=== PATIENT | female | born 1980 | race Caucasian/White ===

== ENCOUNTER 2017-10-17 15:28 | Emergency (ER) | payer BC, MEDICAID ==
[2017-10-17] MEDS ORDERED: Tamsulosin 0.4 MG Cap.ER PO ONE (15:40)
[2017-10-17] MEDS ORDERED: Ketorolac 30 MG/ML SDV IVPUSH ONE (15:40)
--- NOTE | 2017-10-17 15:43 | EDM.PDOC ---
ED HPI GENERAL MEDICAL PROBLEM - General Stated Complaint: LEFT SIDE PAIN Time Seen by Provider: 10/17/17 15:28 Source of Information: Reports: Patient, Family History Limitations: Reports: No Limitations - History of Present Illness INITIAL COMMENTS - FREE TEXT/NARRATIVE: 37 y.o.w.cyndi came with her SO to the ed deu to acute onset of left flank pain, going to her left groin. No trauma, no h/o kidney stones in the past. She underwent tubal ligation in the past. No other acute medical issues at this time. BP 135/86 RR 16 Pulse ox 100% temp 36.4 Onset: Today Onset Date: 10/17/17 Onset Time: 09:00 Duration: Hour(s):, Intermittent Location: Reports: Abdomen, Other (left flank) Quality: Reports: Ache, Throbbing Severity: Severe Improves with: Reports: Rest Worsens with: Reports: Movement Context: Reports: Other (sudden onset of left flank pain) Associated Symptoms: Reports: No Other Symptoms Flank Pain Score (Numeric/FACES): 10 - Related Data Allergies Allergy/AdvReac Type Severity Reaction Status Date / Time No Known Allergies Allergy Verified 10/17/17 17:24 Home Meds: Home Meds Ciprofloxacin HCl [Cipro] 500 mg PO BID #20 tablet 10/17/17 [Rx] Ibuprofen [Motrin] 600 mg PO Q6H PRN #30 tab 10/17/17 [Rx] Tamsulosin HCl [Flomax] 0.4 mg PO DAILY #4 cap.er.24h 10/17/17 [Rx] oxyCODONE HCl/Acetaminophen [Percocet 5-325 mg Tablet] 1 each PO Q6HR PRN #12 tablet 10/17/17 [Rx] Past Medical History - Past Health History Medical/Surgical History: Denies Medical/Surgical History Social & Family History - Tobacco Use Smoking Status *Q: Current Every Day Smoker Years of Tobacco use: 1 - Alcohol Use Days Per Week of Alcohol Use: 0 - Recreational Drug Use Recreational Drug Use: No ED ROS GENERAL - Review of Systems Review Of Systems: Unable To Obtain (due to pain) ED EXAM, RENAL/ - Physical Exam Exam: See Below Exam Limited By: No Limitations General Appearance: Alert, WD/WN, Moderate Distress Eye Exam: Bilateral Eye: Normal Inspection Ears: Normal External Exam Nose: Normal Inspection, Normal Mucosa Throat/Mouth: Normal Inspection Head: Atraumatic, Normocephalic Neck: Normal Inspection, Supple, Non-Tender, Full Range of Motion Respiratory/Chest: No Respiratory Distress, Lungs Clear Cardiovascular: Normal Peripheral Pulses, Regular Rate, Rhythm, No Edema, No Gallop, No Rub GI/Abdominal: Other (left flank pain) (Female) Exam: Deferred Rectal (Female) Exam: Deferred Back Exam: Normal Inspection Extremities: Normal Inspection, Normal Range of Motion Neurological: Alert, Oriented, CN II-XII Intact, Normal Cognition, Normal Gait, No Motor/Sensory Deficits Psychiatric: Normal Affect, Normal Mood Skin Exam: Warm, Dry, Intact, Normal Color, No Rash Lymphatic: No Adenopathy Course - Vital Signs Text/Narrative:: 37 y.o.w.f came with her SO to the ed deu to acute onset of left flank pain, going to her left groin. No trauma, no h/o kidney stones in the past. She underwent tubal ligation in the past, denies Dysuria. No other acute medical issues at this time. BP 135/86 RR 16 Pulse ox 100% temp 36.4 PE: WNWD W F with left flank pain Imagin.2 and 7 mm stone in mmid left ureter with mild hydro Labs: UTI with hematuria Impression: Urolothiasis, UTI with hematuria Tx: Toradol, Flomax, cipro Reexam: pain subsided Plan: D/C with instructions Last Recorded V/S: Last Vital Signs Temp 36.9 C 10/17/17 18:01 Pulse 70 10/17/17 18:01 Resp 16 10/17/17 18:01 BP 128/70 10/17/17 18:01 Pulse Ox 98 10/17/17 18:01 - Orders/Labs/Meds Orders: Active Orders 24 hr Category Date Time Status Abdomen Pelvis wo Cont [CT] Stat Exams 10/17/17 15:41 Taken CULTURE URINE [RM] Stat Lab 10/17/17 17:10 Received Labs: Laboratory Tests 10/17/17 10/17/17 10/17/17 Range/Units 15:50 15:50 17:10 WBC 10.0 (4.5-12.0) X10-3/uL RBC 4.34 (3.23-5.20) x10(6)uL Hgb 13.3 (11.5-15.5) g/dL Hct 39.1 (30.0-51.3) % MCV 90.1 (80-96) fL MCH 30.7 (27.7-33.6) pg MCHC 34.1 (32.2-35.4) g/dL RDW 12.0 (11.5-15.5) % Plt Count 426 H (125-369) X10(3)uL MPV 8.2 (7.4-10.4) fL Neut % (Auto) 64.2 (46-82) % Lymph % (Auto) 24.1 (13-37) % Clark % (Auto) 5.8 (4-12) % Eos % (Auto) 5 (1.0-5.0) % Baso % (Auto) 1 (0-2) % Neut # (Auto) 6.4 (1.6-8.3) # Lymph # (Auto) 2.4 (0.6-5.0) # Clark # (Auto) 0.6 (0.0-1.3) # Eos # (Auto) 0.5 (0.0-0.8) # Baso # (Auto) 0.1 (0.0-0.2) # Sodium 139 (135-145) mmol/L Potassium 3.8 (3.5-5.3) mmol/L Chloride 105 (100-110) mmol/L Carbon Dioxide 26 (21-32) mmol/L BUN 12 (7-18) mg/dL Creatinine 0.8 (0.55-1.02) mg/dL Est Cr Clr Drug Dosing TNP Estimated GFR (MDRD) > 60 (>60) BUN/Creatinine Ratio 15.0 (9-20) Glucose 110 (80-116) mg/dL Calcium 9.0 (8.6-10.2) mg/dL Urine Color (YELLOW) Urine Appearance (CLEAR) Urine pH (5.0-6.5) Ur Specific [place] (1.010-1.025) Urine Protein (NEGATIVE) mg/dL Urine Glucose (UA) (NEGATIVE) mg/dL Urine Ketones (NEGATIVE) mg/dL Urine Occult Blood (NEGATIVE) Urine Nitrite (NEGATIVE) Urine Bilirubin (NEGATIVE) Urine Urobilinogen (NEGATIVE) mg/dL Ur Leukocyte Esterase (NEGATIVE) Urine RBC (0) Urine WBC (0) Ur Squamous Epith Cells (NS,R,O) Urine Bacteria (NS) Urine Mucus (NS) Urine HCG, Qual Negative (NEGATIVE) 10/17/17 Range/Units 17:10 WBC (4.5-12.0) X10-3/uL RBC (3.23-5.20) x10(6)uL Hgb (11.5-15.5) g/dL Hct (30.0-51.3) % MCV (80-96) fL MCH (27.7-33.6) pg MCHC (32.2-35.4) g/dL RDW (11.5-15.5) % Plt Count (125-369) X10(3)uL MPV (7.4-10.4) fL Neut % (Auto) (46-82) % Lymph % (Auto) (13-37) % Clark % (Auto) (4-12) % Eos % (Auto) (1.0-5.0) % Baso % (Auto) (0-2) % Neut # (Auto) (1.6-8.3) # Lymph # (Auto) (0.6-5.0) # Clark # (Auto) (0.0-1.3) # Eos # (Auto) (0.0-0.8) # Baso # (Auto) (0.0-0.2) # Sodium (135-145) mmol/L Potassium (3.5-5.3) mmol/L Chloride (100-110) mmol/L Carbon Dioxide (21-32) mmol/L BUN (7-18) mg/dL Creatinine (0.55-1.02) mg/dL Est Cr Clr Drug Dosing Estimated GFR (MDRD) (>60) BUN/Creatinine Ratio (9-20) Glucose (80-116) mg/dL Calcium (8.6-10.2) mg/dL Urine Color Yellow (YELLOW) Urine Appearance Cloudy (CLEAR) Urine pH 5.0 (5.0-6.5) Ur Specific [place] 1.030 H (1.010-1.025) Urine Protein 30 H (NEGATIVE) mg/dL Urine Glucose (UA) Normal (NEGATIVE) mg/dL Urine Ketones Negative (NEGATIVE) mg/dL Urine Occult Blood Large H (NEGATIVE) Urine Nitrite Positive H (NEGATIVE) Urine Bilirubin Negative (NEGATIVE) Urine Urobilinogen Normal (NEGATIVE) mg/dL Ur Leukocyte Esterase Large H (NEGATIVE) Urine RBC >100 H (0) Urine WBC >100 H (0) Ur Squamous Epith Cells Few H (NS,R,O) Urine Bacteria Many H (NS) Urine Mucus Moderate H (NS) Urine HCG, Qual (NEGATIVE) Meds: Medications Discontinued Medications Generic Name Dose Route Start Last Admin Trade Name Nestorq PRN Reason Stop Dose Admin Ciprofloxacin 500 mg 10/17/17 17:45 10/17/17 17:54 Ciprofloxacin Hcl PO 10/17/17 17:46 500 mg ONETIME ONE Administration Sodium Chloride 1,000 mls @ 999 mls/hr 10/17/17 15:50 10/17/17 16:03 Normal Saline IV 999 mls/hr ASDIRECTED JB Administration Sodium Chloride 1,000 mls @ 999 mls/hr 10/17/17 17:15 10/17/17 17:15 Normal Saline IV 999 mls/hr ASDIRECTED JB Administration Ketorolac Tromethamine 30 mg 10/17/17 15:40 10/17/17 16:05 Toradol IVPUSH 10/17/17 15:41 30 mg ONETIME ONE Administration Tamsulosin HCl 0.4 mg 10/17/17 15:40 10/17/17 16:05 Flomax PO 10/17/17 15:41 0.4 mg ONETIME ONE Administration Departure - Departure Time of Disposition: 17:47 Disposition: Home, Self-Care 01 Condition: Good Clinical Impression: UTI (urinary tract infection) Urolithiasis Qualifiers: Urinary calculus location: ureter Qualified Code(s): N20.1 - Calculus of ureter - Discharge Information Prescriptions: oxyCODONE HCl/Acetaminophen [Percocet 5-325 mg Tablet] 1 each PO Q6HR PRN #12 tablet PRN Reason: for severe pain only Ciprofloxacin HCl [Cipro] 500 mg PO BID #20 tablet Ibuprofen [Motrin] 600 mg PO Q6H PRN #30 tab PRN Reason: moderate pain Tamsulosin HCl [Flomax] 0.4 mg PO DAILY #4 cap.er.24h Instructions: Renal Colic, [id number] Referrals: PCP,None [Primary Care Provider] - Forms: ED Department Discharge Additional Instructions: Please take the Meds as recommended, please increase water intake, please f/u with urology/PMD, please came back if your symptoms get worse acutely - My Orders Last 24 Hours: My Active Orders 10/17/17 15:41 Abdomen Pelvis wo Cont [CT] Stat 10/17/17 17:10 CULTURE URINE [RM] Stat - Assessment/Plan Last 24 Hours: My Active Orders 10/17/17 15:41 Abdomen Pelvis wo Cont [CT] Stat 10/17/17 17:10 CULTURE URINE [RM] Stat
[2017-10-17] MEDS ORDERED: Sodium Chloride 0.9% 1,000 ML IV SCH ×2 (15:50→17:15)
[2017-10-17] MEDS ORDERED: Ciprofloxacin 500 MG Tab PO ONE (17:45)
== END 2017-10-17 18:00 | disposition home or self-care (01) ==
LOC: FB.ED 15:28
DX: N20.2 Calculus of kidney with calculus of ureter (principal); N39.0 Urinary tract infection, site not specified; F17.200 Nicotine dependence, unspecified, uncomplicated
CPT/HCPCS: 36415; 74176; 80048; 81001; 81025; 85025; 87086; 87088; 87186; 96361; 96374; 99284; A9270; J1885; J7040; J7030

== ENCOUNTER 2017-10-31 16:29 | Emergency (ER) | payer BC ==
[2017-10-31] MEDS ORDERED: Tamsulosin 0.4 MG Cap.ER PO ONE (16:52)
[2017-10-31] MEDS ORDERED: Ketorolac 30 MG/ML SDV IVPUSH ONE (16:52)
--- NOTE | 2017-10-31 16:58 | EDM.PDOC ---
ED HPI GENERAL MEDICAL PROBLEM - General Chief Complaint: Genitourinary Problem Stated Complaint: L SIDE PAIN Time Seen by Provider: 10/31/17 16:35 Source of Information: Reports: Patient History Limitations: Reports: Other (flank pain, crying) - History of Present Illness INITIAL COMMENTS - FREE TEXT/NARRATIVE: 37 y.o.w.f with a h/o Kidneystones, S/P stent placement left ureter, came to the ED because of severe left flank pain and bloody urine after she removed the stent by herself [employer]TER [employer]. Pt was in excruciating pain at her left flank with nausea. Pt is on oxycodon, which did not help her pain BP 123/67 pulse 102 Temp 36.8 RR 17 Pulse ox 100% on RA Onset: Today Onset Date: 10/30/17 Onset Time: 13:00 Duration: Hour(s):, Intermittent Location: Reports: Back Quality: Reports: Ache, Burning, Dull, Pressure, Same as Previous Episode Severity: Moderate Improves with: Reports: Medication Worsens with: Reports: Movement Context: Reports: Other (H/O kidney stones) left side/flank Pain Score (Numeric/FACES): 10 - Related Data Allergies Allergy/AdvReac Type Severity Reaction Status Date / Time No Known Allergies Allergy Verified 10/31/17 16:38 Home Meds: Home Meds Ciprofloxacin HCl [Cipro] 500 mg PO BID #20 tablet 10/17/17 [Rx] Ibuprofen [Motrin] 600 mg PO Q6H PRN #30 tab 10/17/17 [Rx] Tamsulosin HCl [Flomax] 0.4 mg PO DAILY #4 cap.er.24h 10/17/17 [Rx] oxyCODONE HCl/Acetaminophen [Percocet 5-325 mg Tablet] 1 each PO Q6HR PRN #12 tablet 10/17/17 [Rx] Past Medical History - Past Health History Medical/Surgical History: Denies Medical/Surgical History Genitourinary History: Reports: Other (See Below) Other Genitourinary History: kidney stones - Past Surgical History Other Female Surgeries/Procedures: states that she had stents in her kidneys that she removed yesterday. states that she was inturcted to remove it herself. Social & Family History - Family History Family Medical History: Noncontributory - Tobacco Use Smoking Status *Q: Current Every Day Smoker Years of Tobacco use: 20 Packs/Tins Daily: 0.5 Used Tobacco, but Quit: No Second Hand Smoke Exposure: Yes - Caffeine Use Caffeine Use: Reports: Coffee, Soda - Alcohol Use Days Per Week of Alcohol Use: 0 - Recreational Drug Use Recreational Drug Use: No ED ROS GENERAL - Review of Systems Review Of Systems: See Below Constitutional: Reports: No Symptoms HEENT: Reports: No Symptoms Respiratory: Reports: No Symptoms Cardiovascular: Reports: No Symptoms Endocrine: Reports: No Symptoms GI/Abdominal: Reports: Abdominal Pain (left flank pain) : Reports: No Symptoms Musculoskeletal: Reports: No Symptoms Skin: Reports: No Symptoms Neurological: Reports: No Symptoms Psychiatric: Reports: No Symptoms Hematologic/Lymphatic: Reports: No Symptoms Immunologic: Reports: No Symptoms ED EXAM, RENAL/ - Physical Exam Exam: See Below Exam Limited By: Other (flankpain, crying) General Appearance: Alert, WD/WN, Moderate Distress (left flank pain) Eye Exam: Bilateral Eye: Normal Inspection Ears: Normal External Exam Nose: Normal Inspection Throat/Mouth: Normal Inspection Head: Atraumatic, Normocephalic Neck: Normal Inspection, Supple Respiratory/Chest: No Respiratory Distress, Lungs Clear Cardiovascular: Normal Peripheral Pulses, Regular Rate, Rhythm GI/Abdominal: Tender (left back/flank) (Female) Exam: Deferred Rectal (Female) Exam: Deferred Back Exam: Normal Inspection, CVA Tenderness (L) Extremities: Normal Inspection, Normal Range of Motion, Non-Tender, No Pedal Edema Neurological: Alert, Oriented, CN II-XII Intact, Normal Cognition, Normal Gait Psychiatric: Normal Affect, Depressed Mood, Tearful (crying) Skin Exam: Warm, Dry, Intact, Normal Color, No Rash Lymphatic: No Adenopathy Course - Vital Signs Text/Narrative:: 37 y.o.w.f with a h/o Kidneystones, S/P stent placement left ureter, came to the ED because of severe left flank pain and bloody urine after she removed the stent by herself [employer]. Pt was in excruciating pain at her left flank with nausea. Pt is on oxycodon, and Motrin, which did not help her pain. BP 123/67 pulse 102 Temp 36.8 RR 17 Pulse ox 100% on RA PE: WNWD W F with excruciating pain left flank. Labs: UA pos of hematuria Imaging: refused Impression: Left flank pain, H/O kidneystone, Hematuria, Tx: Refused Note: Pt left AMA without signing the paper after the nurse attempted an IV at her left arm and asked the pt if she could use her right arm. Pt suddenly said, "she can not take it anymore" and walked out of the ed with her SO. IM meds were offered. Last Recorded V/S: Last Vital Signs Temp 36.6 C 10/31/17 16:35 Pulse 105 H 10/31/17 16:35 Resp 17 10/31/17 16:35 BP 123/69 10/31/17 16:35 Pulse Ox 100 10/31/17 16:35 - Orders/Labs/Meds Labs: Laboratory Tests 10/31/17 10/31/17 Range/Units 16:48 16:[address] [place] (YELLOW) Urine Appearance Clear (CLEAR) Urine pH 8.0 H (5.0-6.5) Ur Specific [place] 1.010 (1.010-1.025) Urine Protein 30 H (NEGATIVE) mg/dL Urine Glucose (UA) Normal (NEGATIVE) mg/dL Urine Ketones Negative (NEGATIVE) mg/dL Urine Occult Blood Large H (NEGATIVE) Urine Nitrite Negative (NEGATIVE) Urine Bilirubin Small H (NEGATIVE) Urine Urobilinogen 1 H (NEGATIVE) mg/dL Ur Leukocyte Esterase Negative (NEGATIVE) Urine RBC >100 H (0) Urine WBC 0-5 (0) Ur Squamous Epith Cells Moderate H (NS,R,O) Urine Bacteria Moderate H (NS) Urine HCG, Qual Negative (NEGATIVE) Meds: Medications Discontinued Medications Generic Name Dose Route Start Last Admin Trade Name Freq PRN Reason Stop Dose Admin Sodium Chloride 1,000 mls @ 999 mls/hr 10/31/17 17:00 Normal Saline IV ASDIRECTED [facility] Ketorolac Tromethamine 30 mg 10/31/17 16:52 Toradol IVPUSH 10/31/17 16:53 ONETIME ONE Tamsulosin HCl 0.4 mg 10/31/17 16:52 Flomax PO 10/31/17 16:53 ONETIME ONE Departure - Departure Time of Disposition: 17:04 Disposition: Against Medical Advice 07 Condition: Fair Clinical Impression: Acute left flank pain - Discharge Information Referrals: Dhara Upton NURSING STAFF DEVELOPMENT COORDINATOR [Ordering Only Provider] - Forms: ED Department Discharge Additional Instructions: Pt walked out of the ED whle the nurse attempted to start an I.V at her left arm.
[2017-10-31] MEDS ORDERED: Sodium Chloride 0.9% 1,000 ML IV SCH (17:00)
== END 2017-10-31 17:15 | disposition left against medical advice (07) ==
LOC: FB.ED 16:29
DX: R10.9 Unspecified abdominal pain (principal); Z79.899 Other long term (current) drug therapy; F17.210 Nicotine dependence, cigarettes, uncomplicated
CPT/HCPCS: 81001; 81025; 99283

== ENCOUNTER 2018-01-17 15:01 | Emergency (ER) | payer BC ==
[2018-01-17] MEDS ORDERED: Lidocaine/EPINEPHrine/Tetracaine Soln 5 ML Each TOP ONE (15:09)
--- NOTE | 2018-01-17 15:11 | EDM.PDOC ---
ED HPI GENERAL MEDICAL PROBLEM - General Stated Complaint: CUT ON RIGHT HAND Time Seen by Provider: 01/17/18 15:01 Source of Information: Reports: Patient History Limitations: Reports: No Limitations - History of Present Illness INITIAL COMMENTS - FREE TEXT/NARRATIVE: 37 y.o.w.f came to the ed shortly after she cut her right hand on a glass while doing dishes. Pt denied the possibility of glass being in her wound. No loss of function of her right hand. Wound was initially severely bleed. 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 Pt is UTD with her tetanus immunizations. No other acute medial issues. BP 124/85 Pulse 80 RR 16 Temp 36.8 Pulse ox 100 Onset Date: 01/17/18 Onset Time: 14:30 Duration: Minutes:, Intermittent (bleed) Location: Reports: Upper Extremity, Right Quality: Reports: Ache, Burning Severity: Mild Improves with: Reports: Rest Worsens with: Reports: Movement Context: Reports: Trauma (right lat hand, volar aspect. ) Associated Symptoms: Reports: No Other Symptoms Right Hand Pain Score (Numeric/FACES): 2 - Related Data Allergies Allergy/AdvReac Type Severity Reaction Status Date / Time No Known Allergies Allergy Verified 01/17/18 15:13 Home Meds: Home Meds Cephalexin [Keflex] 500 mg PO Q6H #40 cap 01/17/18 [Rx] Past Medical History - Past Health History Medical/Surgical History: Denies Medical/Surgical History Genitourinary History: Reports: Other (See Below) Other Genitourinary History: kidney stones - Past Surgical History Other Female Surgeries/Procedures: states that she had stents in her kidneys that she removed yesterday. states that she was inturcted to remove it herself. Social & Family History - Family History Family Medical History: Noncontributory - Tobacco Use Smoking Status *Q: Current Every Day Smoker Years of Tobacco use: 20 Packs/Tins Daily: 0.5 Used Tobacco, but Quit: No Second Hand Smoke Exposure: Yes - Caffeine Use Caffeine Use: Reports: Coffee, Soda - Alcohol Use Days Per Week of Alcohol Use: 0 - Recreational Drug Use Recreational Drug Use: No Review of Systems - Review of Systems Review Of Systems: See Below Constitutional: Reports: No Symptoms Eyes: Reports: No Symptoms Ears: Reports: No Symptoms Nose: Reports: No Symptoms Mouth/Throat: Reports: No Symptoms Respiratory: Reports: No Symptoms Cardiovascular: Reports: No Symptoms GI/Abdominal: Reports: No Symptoms Genitourinary: Reports: No Symptoms Musculoskeletal: Reports: No Symptoms Skin: Reports: Wound (right hand) Neurological: Reports: No Symptoms Psychiatric: Reports: No Symptoms ED EXAM, GENERAL - Physical Exam Exam: See Below General Appearance: Alert, WD/WN, Mild Distress Eye Exam: Bilateral Eye: Normal Inspection Ears: Normal External Exam Ear Exam: Bilateral Ear: Auricle Normal Nose: Normal Inspection, Normal Mucosa Throat/Mouth: Normal Inspection, Normal Lips, No Airway Compromise Head: Atraumatic, Normocephalic Neck: Normal Inspection, Supple, Non-Tender, Full Range of Motion Respiratory/Chest: No Respiratory Distress, Lungs Clear, Normal Breath Sounds Cardiovascular: Normal Peripheral Pulses, Regular Rate, Rhythm, No Edema Peripheral Pulses: 1+: Radial (L) GI/Abdominal: Normal Bowel Sounds, Soft, Non-Tender, No Organomegaly (Female) Exam: Deferred Rectal (Female) Exam: Deferred Back Exam: Normal Inspection, Full Range of Motion Extremities: Normal Inspection, Normal Range of Motion, Non-Tender, No Pedal Edema, Normal Capillary Refill, Other (Lac right hand) Neurological: Alert, Oriented, CN II-XII Intact, Normal Cognition, Normal Gait, No Motor/Sensory Deficits Psychiatric: Normal Affect, Normal Mood Skin Exam: Warm, Dry, Wound/Incision (right hand) Lymphatic: No Adenopathy ED TRAUMA EXTREMITY PROCEDURES - Laceration/Wound Repair Right Anterior Hand Lac/Wound Length In cm: 0.5 Appearance: Subcutaneous, Linear, Clean Distal NVT: Neuro & Vascular Intact, No Tendon Injury Anesthetic Type: Topical (LET. Pt refused pain meds injections) Local Anesthetic Volume: 2cc Skin Prep: Chlorhexidine (Hibiciens) Saline Irrigation (cc's): 2 Exploration/Debridement/Repair: Wound Explored, In a Bloodless Field, Explored to Base Suture Size: 4-0 # of Sutures: 1 Suture Type: Other (ethilon) Drain Placement: No Sterile Dressing Applied: Nurse Tetanus Status Addressed: Yes (2 years ago) Complications: No Course - Vital Signs Text/Narrative:: 37 y.o.w.f came to the ed shortly after she cut her right hand on a glass while doing dishes. Pt denied the possibility of glass being in her wound. No loss of function of her right hand. Wound was initially severely bleed. 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 Pt is UTD with her tetanus immunizations. No other acute medial issues. BP 124/85 Pulse 80 RR 16 Temp 36.8 Pulse ox 100 PE: WNWD W F with a minor LAC right hand Procedure, please see not above Imaging to R/O FB: Refused by PT Impression: Laceration right hand Tx: Wound care with Neosporine ointment, Keflex Reexam: Improved Cedeño: D/C with instructions Last Recorded V/S: Last Vital Signs Temp 37.3 C 01/17/18 15:14 Pulse 80 01/17/18 15:14 Resp 16 01/17/18 15:14 BP 124/86 01/17/18 15:14 Pulse Ox 100 01/17/18 15:14 - Orders/Labs/Meds Meds: Medications Discontinued Medications Generic Name Dose Route Start Last Admin Trade Name Freq PRN Reason Stop Dose Admin Cephalexin 500 mg 01/17/18 16:06 01/17/18 16:14 Keflex PO 01/17/18 16:07 500 mg ONETIME ONE Administration Lidocaine/Tetracaine 5 ml 01/17/18 15:09 01/17/18 15:26 Let Soln TOP 01/17/18 15:10 5 ml ONETIME ONE Administration Departure - Departure Time of Disposition: 16:07 Disposition: Home, Self-Care 01 Condition: Good Clinical Impression: Laceration - Discharge Information Prescriptions: Cephalexin [Keflex] 500 mg PO Q6H #40 cap Instructions: Laceration Care, Adult Referrals: Earnest Garcia MD [Primary Care Provider] - Forms: ED Department Discharge Additional Instructions: Please apply neosporine to wound twice daily for 5 days, please take Keflex as recommended, Wound check in 2 days. Suture removal in 10 days. Please come back if your symptoms get worse acutely
[2018-01-17] MEDS ORDERED: Cephalexin 500 MG Cap PO ONE (16:06)
== END 2018-01-17 16:15 | disposition home or self-care (01) ==
LOC: FB.ED 15:01
DX: S61.411A Laceration without foreign body of right hand, initial encounter (principal); F17.210 Nicotine dependence, cigarettes, uncomplicated; Z87.442 Personal history of urinary calculi; W45.8XXA Other foreign body or object entering through skin, initial encounter; W25.XXXA Contact with sharp glass, initial encounter
CPT/HCPCS: 12001; 99282; A9270

== ENCOUNTER 2023-02-05 20:43 | Emergency (ER) | payer BC, MEDICAID ==
[2023-02-05] MEDS ORDERED: Albuterol/Ipratropium 3.0-0.5 MG/3 ML Neb Soln NEB ONE (21:04)
[2023-02-05 21:22] LABS: BASOPHILS ABSOLUTE AUTO 0.1 x10-3/uL (0.0-0.1); BASOPHILS PERCENT AUTO 1.1 % (0.2-1.5); EOSINOPHILS ABSOLUTE AUTO 0.7 x10-3/uL (0.0-0.8); EOSINOPHILS PERCENT AUTO 8.5 % (0.6-8.1); HEMATOCRIT 39.9 % (34.2-48.2); LYMPHOCYTES ABSOLUTE AUTO 2.6 x10-3/uL (1.0-4.4); LYMPHOCYTES PERCENT AUTO 30.7 % (18.4-52.1); MEAN CORPUSCULAR HGB CONC 32.7 g/dL (31.9-34.8); MEAN CORPUSCULAR VOLUME 91.7 fL (76.7-100.5); MEAN PLATELET VOLUME 8.1 fL (7.1-12.4); MONOCYTES ABSOLUTE AUTO 0.6 x10-3/uL (0.3-1.0); MONOCYTES PERCENT AUTO 7.5 % (4.4-15.7); NEUTROPHILS ABSOLUTE AUTO 4.4 x10-3/uL (1.5-6.3); NEUTROPHILS PERCENT AUTO 52.2 % (30.8-76.2); PLATELET COUNT,PLT 482 x10(3)uL (151-488); RED BLOOD CELL COUNT 4.35 x10(6)uL (3.60-5.20); RED CELL DISTRIBUTION WIDTH 13.5 % (12.3-16.5); WHITE BLOOD CELL COUNT,WBC 8.4 x10-3/uL (3.0-10.3)
[2023-02-05 21:24] LABS: BLOOD UREA NITROGEN,BUN 14 mg/dL (7-18); BUN/CREATININE RATIO 17.5 (9-20); CALCIUM 9.5 mg/dL (8.6-10.2); CARBON DIOXIDE,CO2 27 mmol/L (21-32); CHLORIDE,CL 106 mmol/L (100-110); CREATININE 0.8 mg/dL (0.55-1.02); ESTIMATED GFR 95 mL/min (>60); GLUCOSE RANDOM 121 mg/dL (80-116); POTASSIUM,K 4.1 mmol/L (3.5-5.3); SODIUM,NA 141 mmol/L (135-145)
[2023-02-05] MEDS: Ketorolac 30 MG/ML SDV IM ONE ×2 (21:56→22:08)
[2023-02-05] MEDS: Ondansetron 4 MG/2 ML SDV IM ONE ×2 (21:57→22:08)
== END 2023-02-05 22:04 | disposition left against medical advice (07) ==
LOC: FB.ED 20:43
DX: K04.7 Periapical abscess without sinus (principal); R11.2 Nausea with vomiting, unspecified; J44.9 Chronic obstructive pulmonary disease, unspecified
CPT/HCPCS: 36415; 71046; 80048; 85025; 86140; 99284; J1885; J2405